=== PATIENT | female | born 1975 | race African-American/Black ===

== ENCOUNTER 2016-12-10 16:51 | Emergency (ER) | payer OTHER ==
[~2016-12-10] VITALS: Ht 154.9 cm; Wt 84.8 kg
[2016-12-10 18:48] LABS: HEMATOCRIT 40.9 % (36.0-46.0); MCH 27.1 PG (29.0-34.0); MCHC 32.8 G/DL (30.0-36.0); MCV 82.6 FL (83-99); MEAN PLAT.VOLUME 9.3 uM^3 (9.5-12.4); PLATELET COUNT 348 K/uL (156-360); RBC DIS.WIDTH-CV 16.3 % (11.8-14.6); RBC DIS.WIDTH-SD 49.5 % (39-53); RED BLOOD COUNT 4.95 M/uL (3.80-5.20); WHITE BLOOD COUNT 8.4 K/uL (4.1-10.2)
[2016-12-10 18:54] LABS: CHLORIDE 103 mEq/L (99-109); POTASSIUM 3.8 mEq/L (3.7-5.4); SODIUM 140 mEq/L (136-147)
[2016-12-10 18:57] LABS: GLUCOSE 86 mg/dL (70-99)
[2016-12-10 18:58] LABS: ANION GAP 12 MEQ/L (2-14)
[2016-12-10 18:59] LABS: TOTAL BILIRUBIN 0.5 mg/dL (0.0-1.0)
[2016-12-10 19:00] LABS: ALKALINE PHOSPHATASE 71 IU/L (3-129); GFR ESTIMATE (CALCULATED) > 59 mL/min/
[2016-12-10 19:01] LABS: UREA NITROGEN (BUN) 9 mg/dL (9-23)
[2016-12-10 19:04] LABS: LIPASE 14 U/L (1.0-51.0)
[2016-12-10 19:11] LABS: QUANTITATIVE HCG < 4.0 MIU/ML
[2016-12-10] MEDS ORDERED: NORCO 7.5/321 TABLET PO (21:07)
[2016-12-10] MEDS ORDERED: MOTRIN800 MG PO (21:07)
[2016-12-10 21:45] VITALS: BP 143/91
== END 2016-12-10 21:46 | disposition home or self-care (01) ==
LOC: EME 16:51
PROVIDERS: Physician Assistant
DX: S30.1XXA Contusion of abdominal wall, initial encounter (principal); S80.12XA Contusion of left lower leg, initial encounter; S80.01XA Contusion of right knee, initial encounter; S93.402A Sprain of unspecified ligament of left ankle, initial encounter; S50.12XA Contusion of left forearm, initial encounter; V29.9XXA Motorcycle rider (driver) (passenger) injured in unspecified traffic accident, initial encounter; Y92.410 Unspecified street and highway as the place of occurrence of the external cause
CPT/HCPCS: 73090; 73590; 74177; 80053; 83690; 84702; 85027; 93971; 99281; 99284; J3010; J7030